=== PATIENT | female | born 1990 | race Caucasian/White ===

== ENCOUNTER 2020-08-22 07:03 | Emergency (ER) | payer OTHER ==
[~2020-08-22] VITALS: Ht 160 cm; Wt 86.4 kg
[2020-08-22] MEDS ORDERED: NS 1,000 ML IV ONE (07:45)
--- NOTE | 2020-08-22 08:30 | REP ---
INDICATION: left flank pain, eval for hydro/calc COMPARISON: 03/23/2019 TECHNIQUE: Real time trinh scale and color Doppler ultrasound examination using curved array transducer. FINDINGS: Right kidney measures 10.5 x 4.8 x 3.7 cm (RI 0.56) without hydronephrosis, nephrolithiasis, cystic or renal mass lesion. Left kidney measures 10.4 x 4.2 x 4.1 cm (RI 0.60) with mild hydronephrosis. No obvious nephrolithiasis, cystic or renal mass lesion. Bladder is unremarkable. IMPRESSION: Mild left hydronephrosis suggested. <Electronically signed by Tavo Del Castillo > 08/22/20 [id number]
[2020-08-22 08:55] LABS: BASO % 0.3 % (0.0-1.0); EOS % 0.4 % (0.0-3.0); HEMATOCRIT 39.9 % (36.0-47.0); HEMOGLOBIN 13.2 g/dl (12.0-15.5); LYMPH # 1.1 10^3/uL (1.5-5.0); LYMPH % 9.9 % (24.0-44.0); MEAN CORPUSCULAR HEMOGLOBIN 28.5 pg (27.0-33.0); MEAN CORPUSCULAR HGB CONC 33.1 g/dl (32.0-36.5); MEAN CORPUSCULAR VOLUME 86.2 fl (80.0-96.0); MONO # 0.5 10^3/uL (0.0-0.8); MONO % 4.3 % (2.0-8.0); NEUTROPHILS # 9.7 10^3/uL (1.5-8.5); NEUTROPHILS % 84.8 % (36.0-66.0); PLATELET COUNT, AUTOMATED 359 10^3/uL (150-450); RED BLOOD COUNT 4.63 10^6/uL (4.00-5.40); WHITE BLOOD COUNT 11.4 10^3/uL (4.0-10.0)
[2020-08-22 09:22] LABS: ALBUMIN 3.9 GM/DL (3.2-5.2); BILIRUBIN,DIRECT 0.1 MG/DL (0.0-0.2); BILIRUBIN,TOTAL 0.5 MG/DL (0.2-1.0); TOTAL PROTEIN 8.4 GM/DL (6.4-8.2)
--- NOTE | 2020-08-22 11:17 | REP ---
INDICATION: left flank pain, eval for calc; mild hydro on US COMPARISON: None TECHNIQUE: Axial noncontrast images from the lung bases to the pubic symphysis with coronal and sagittal reformations. This CT examination was performed using the following dose reduction techniques: Automated exposure control, adjustment of mA and/or kv according to the patient's size, and use of iterative reconstruction technique. FINDINGS: Lung bases include a 1 cm noncalcified nodule in the left lower lobe (series 204; image 21). Left kidney demonstrates mild perinephric stranding and mild hydronephrosis without nephrolithiasis or obstructing ureteral calculus and likely represents pyelonephritis. Correlation is recommended. Right kidney/ureter appears normal. Liver, spleen, pancreas, gallbladder, and bilateral adrenal glands are normal. The enteric system is unremarkable and without obstruction or acute inflammatory process. Normal terminal ileum and appendix identified in the right lower quadrant. Pelvis demonstrates normal bladder and age-appropriate uterus/adnexa. No ascites. No free air. No adenopathy. No focal inflammatory stranding. Abdominal aorta without aneurysm. Musculoskeletal structures are intact and without acute osseous abnormality. IMPRESSION: 1. Left perinephric stranding without nephroureterolithiasis. Findings suggest pyelonephritis and should be correlated clinically. 2. 1 cm noncalcified nodule in the left lung base likely benign granuloma. However, follow-up noncontrast chest CT at 3-6 months is recommended should be obtained to confirm stability. <Electronically signed by Tavo Del Castillo > 08/22/20 [id number]
[2020-08-22] MEDS ORDERED: CIPR-249 PO (11:53)
[2020-08-22 12:04] VITALS: BP 133/77
--- NOTE | 2020-08-24 08:51 | ED PDOC ---
Post-Departure Follow-Up [facility] faxed formal report of ct abd/p for fu Kaity Solano MD August 24, 2020 08:51
== END 2020-08-22 12:19 | disposition home or self-care (01) ==
LOC: M ED 07:03
DX: N10 Acute pyelonephritis (principal)

== ENCOUNTER → 2024-06-05 | Outpatient (CLI) | payer OTHER ==
[~2024-06-05] MED LIST: CIPR-249 PO
== END ==
LOC: M RAD 13:02
PROVIDERS: ATTEND Physician Assistant
DX: M25.511 Pain in right shoulder (principal)